=== PATIENT | female | born 1975 ===

== ENCOUNTER 2016-10-05 08:46 | Inpatient (IN) | payer OTHER ==
[~2016-10-05] VITALS: Ht 162.6 cm; Wt 68.0 kg
[2016-10-05] VITALS (10 sets, daily range): BP systolic 98–127; BP diastolic 54–78
[~2016-10-05 08:46] MED LIST: NKM
[2016-10-05] MEDS ORDERED: Thrombin 5000 units TOPIC ONE (09:55)
[2016-10-05] MEDS ORDERED: Bupivacaine w/Epi 0.5% 30ml Vial INJ ONE (09:56)
[2016-10-05] MEDS ORDERED: Bacitracin 50000 Units Vial ONE (09:56)
[2016-10-05] MEDS ORDERED: Gelfoam Absorbable 1gm powder pkt TOPIC ONE (09:56)
[2016-10-05] MEDS ORDERED: Thrombin 5000 units spray kit TOPIC ONE (09:56)
--- NOTE | 2016-10-05 10:40 | Anethesia Preoperative Eval ---
Anesthesia Pre-op PMH/ROS General Date of Evaluation: Oct 05, 2016 Time of Evaluation: 10:30 Anesthesiologist: Jet ASA Score: ASA 1 Mallampati Score Class I : Soft palate, uvula, fauces, pillars visible Class II: Soft palate, uvula, fauces visible Class III: Soft palate, base of uvula visible Class IV: Only hard plate visible Mallampati Classification: Class II Surgeon: Teresa Diagnosis: Cervical disc degeneration Surgical Procedure: ACDF Family History: no anesthesia problems Allergies: Coded Allergies: No Known Allergies (Unverified , 10/04/16) Medications: see eMAR Past Medical History Cardiovascular: Denies: CAD, HTN, [place], arrhythmia, other, valve dz Pulmonary: Denies: COPD, MARIO, asthma, other Gastrointestinal/Genitourinary: Denies: CRI, ESRD, GERD, other Neurologic/Psychiatric: Denies: CVA, TIA, dementia, depression/anxiety, other Endocrine: Denies: DM, hypothyroidism, other, steroids HEENT: Denies: [place] (L), [place] (R), cataract (L), cataract (R), glaucoma, other Hematology/Immune: Denies: DVT, anemia, bleeding disorder, other Musculoskeletal/Integumentary: Denies: DDD, DJD, OA, RA, edema, other PMH Narrative: Denies significant PMH PSxH Narrative: Lap Jo-Ann, T&A, IH, left wrist Anesthesia Pre-op Phys. Exam Physician Exam Last Vital Signs Date Time Temp Pulse Resp B/P Pulse Ox O2 Delivery O2 Flow Rate FiO2 10/05/16 09:25 98.4 66 18 127/78 100 Room Air Constitutional: NAD Neurologic: CN 2-12 intact Cardiovascular: RRR, no M/R/G Respiratory: CTA Gastrointestinal: S/NT/ND Airway Exam Mallampati Score: Class II MO: full ROM: full Teeth: intact Anesthesia Pre-op A/P Labs WNL Urine Test Test 10/05/16 09:00 Urine HCG, Qualitative Negative Studies Pre-op Studies: EKG - NSR Risk Assessment & Plan Assessment: Healthy female for ACDF Plan: GETA, SedLine Status Change Before Surgery: No Pre-Antibiotics Drug: Ancef Given Within 1 Hr of Incision: Yes Time Given: 12:35 HALEIGH WONG M.D. Oct 05, 2016 10:40
--- NOTE | 2016-10-05 10:41 | Immediate Post-Op Evaluation ---
Immediate Post-Op Evalulation Immediate Post-Op Evalulation Procedure: ACDF Date of Evaluation: Oct 05, 2016 Time of Evaluation: 15:20 IV Fluids: 1300 Urinary Output: 50 Blood Pressure Systolic: 109 Blood Pressure Diastolic: 58 Pulse Rate: 90 Respiratory Rate: 15 O2 Sat by Pulse Oximetry: 100 Temperature (Fahrenheit): 97.1 Pain Score (1-10): 0 Nausea: No Vomiting: No Complications No complication Patient Status: reacts, patent, extubated, none Hydration Status: adequate Drug: Ancef Given Within 1 Hr of Incision: Yes Time Given: 12:35 HALEIGH WONG M.D. Oct 05, 2016 10:40
[2016-10-05] MEDS ORDERED: Midazolam 2mg/2ml Inj ONE (12:00)
[2016-10-05] MEDS ORDERED: Zemuron 50mg/5ml Inj IV ONE (12:00)
[2016-10-05] MEDS ORDERED: fentaNYL 100 mcg/2 mL IV ONE (12:00)
[2016-10-05] MEDS ORDERED: Propofol 10mg/ml 100ml btl IV ONE (12:00)
[2016-10-05] MEDS ORDERED: Metoprolol 5mg/5ml Inj ONE (12:00)
[2016-10-05] MEDS ORDERED: LR 1000ml ONE (12:00)
--- NOTE | 2016-10-05 12:08 | Pre-Procedure Note/Attestation ---
Pre-Procedure Note/Attestation Complete Prior to Procedure Procedure Narrative: C567 ACDR vs ACDF VS hybrid Indications for Procedure Pre-Operative Diagnosis: c567 Discopathy Attestation I attest that I discussed the nature of the procedure; its benefits; risks and complications; and alternatives (and the risks and benefits of such alternatives ), prior to the procedure, with the patient (or the patient's legal associate sales representative). I attest that, if there was a reasonable possibility of needing a blood transfusion, the patient (or the patient's legal associate sales representative) was given the [facility] standardized written summary, pursuant to the [place]ong [place] Blood Safety Act ([place] Health and Safety Code # 1645, as amended). I attest that I re-evaluated the patient just prior to the surgery and that there has been no change in the patient's H&P, except as documented below: GALO SANTOS Oct 05, 2016 12:08
[2016-10-05] MEDS ORDERED: LR 1000ml 1,000 ML IVLG SCH (15:20)
[2016-10-05] MEDS ORDERED: Hydromorphone 0.5mg/0.5ml inj ONE (15:21)
[2016-10-05] MEDS ORDERED: Meperidine 25mg/0.5ml Inj (FOR RIGORS ONLY) IV PRN (15:30)
[2016-10-05] MEDS ORDERED: LR 1000ml 1,000 ML IV SCH (15:30)
[2016-10-05] MEDS ORDERED: Hydromorphone 0.5mg/0.5ml inj IVP PRN (15:30)
[2016-10-05] MEDS ORDERED: HYDROmorphone 1mg/ml Carpuject IVP PRN (15:30)
[2016-10-05] MEDS ORDERED: Naloxone 0.4mg/ml Inj IVP PRN (15:30)
[2016-10-05] MEDS ORDERED: LORazepam Inj 2mg/ml 1ml IV PRN (15:30)
[2016-10-05] MEDS ORDERED: Norco 5mg/325mg tab ORAL PRN (15:30)
[2016-10-05] MEDS ORDERED: Metoclopramide 10mg/2ml Inj IVP PRN (15:30)
[2016-10-05] MEDS ORDERED: Norco 7.5mg/325mg tab ORAL PRN ×2 (15:30)
--- NOTE | 2016-10-05 15:33 | Brief Operative Note ---
Immediate Post Operative Note Operative Note Pre-op Diagnosis: c567 Discopathy Procedure: ACDF c56,ACDR C67 Post-op Diagnosis: same as pre-op Findings: consistent w/pre-op dx studies Surgeon: yara Anesthesiologist: lucy Anesthesia: general Specimen: none Complications: none Condition: stable Estimated Blood Loss: minimal Drains: none Implant(s) used?: Yes - alphatec plate and peek cage (c56), Mobi-c disc (c67) GALO SANTOS Oct 05, 2016 15:33
--- NOTE | 2016-10-05 16:26 | Diagnostic Imaging Report ---
Indication: PAIN Technique: Digital intraoperative images Comparison: None Findings: Initial image demonstrates a surgical tool projected at the level of anterior C6-7 disc. Subsequent images demonstrate placement of a disc prosthesis at C6-7, and anterior fusion hardware and disc spacer at C5-6. Impression: Intraoperative imaging, as described
[2016-10-05] MEDS ORDERED: HYDROmorphone 1mg/ml Carpuject SUBQ PRN ×2 (17:00→21:00)
[2016-10-05] MEDS: D5 1/2NS 1,000 ML IV SCH (17:07)
[2016-10-05] MEDS: Docusate 100mg cap ORAL SCH (17:58)
[2016-10-05] MEDS: Pericolace tab ORAL SCH (17:58)
--- NOTE | 2016-10-05 20:00 | Operative Note - Dictated ---
DATE OF OPERATION: 10/05/2016 SURGEON: Ignacio Moore M.D. [employer] SUPERVISOR: None. ANESTHESIOLOGIST: Phong Chaudhary M.D. ANESTHESIA TYPE: General endotracheal anesthesia. PREOPERATIVE DIAGNOSES: 1. C5-C6 diskopathy. 2. C6-C7 disk rupture with radiculopathy. POSTOPERATIVE DIAGNOSES: 1. C5-C6 diskopathy. 2. C6-C7 disk rupture with radiculopathy. PROCEDURE: 1. Widened radical diskectomy C5-C6 and C6-C7 for decompression of spinal cord. 2. Placement of artificial disk replacement (Mobi-C) at the C6-C7. 3. Interbody fusion with placement of PEEK structural cage packed with bacterin allograft as well as local autograft bone. 4. Anterior instrumentation using Alphatec plate C5-C6. 5. Use of fluoroscopy. 6. Neurodiagnostic monitoring. ESTIMATED BLOOD LOSS: None. COMPLICATIONS: None. FINDINGS: Advanced diskopathy at C5-C6 with such a significant diskogenic collapse that was felt inappropriate to place an artificial disk in that location, however, the C6-C7 level was then ideal setting for a disk replacement. Therefore, a hybrid procedure was elected intraoperatively based on the inability and inappropriateness of placement of artificial disk at C5-C6. RISK NOTE: The patient was explained in detail the risks and benefits of surgery to include, but not be limited to, those of bleeding, infection, damage to nerves, vessels, tendons, anesthetic risk, allergic reaction, aspiration, and possibly . The patient understood and wished to proceed. OPERATIVE PROCEDURE IN DETAIL: The patient was taken to the operative suite. After general endotracheal anesthesia was obtained, the neck was strapped, arms were tucked, and bolster was placed under the neck. The neck was then prepped and draped in usual sterile fashion. Under fluoroscopic guidance, then we are able to identify the appropriate level for the C6 level. The transverse incision was made in one of the skin creases. This was performed after the skin was infiltrated with Marcaine with epinephrine. Once the skin was incised, the platysma was identified and was split transversely. Dissection was then carried out to the interval deep to the platysma along the medial to the sternocleidomastoid. Blunt dissection was carried out to the level of the prevertebral fascia medial to the carotid. A self-retaining retractors were put into place. After needle was placed at C6-C7 confirming our position. The C5-C6 level was first addressed. [place] posts were placed under fluoroscopic guidance at C6 and ultimately at C5 as well. The disk was incised. Please note that the disk was very collapsed and was markedly fibrosed. Once this was identified, it was elected that this would not be an appropriate medium for placement of artificial disk and it was elected to perform a fusion at this level. Aggressive diskectomy was performed all the way to the posterior osteophytes. Posterior longitudinal ligament was also removed. This was performed using a high-speed drill to remove posterior osteophytes as well as a curved curette to remove the posterior annulus and PLL. The Kerrison punch 2 millimeter was used to remove the PLL decompressing the spinal cord. A small PEEK cage was chosen, which was only 13 mm anterior to posterior dimension due to the patient's narrow vertebral depth. It was centrally packed with Bacterin bone allograft as well as local autograft bone. Once this was inserted, it was verified fluoroscopically to be in good position. [place] posts was then removed from C5 and under fluoroscopic guidance was placed into C7. The retractors were positioned in a way that the C6-C7 level could be easily addressed. In a similar fashion widened radical diskectomy was performed at C6-C7 using a scalpel, curette, pituitaries, and Kerrison Rongeurs. Dissection was carried out all the way to the posterior anulus. Posterior annulus was partially resected and then extruded central disk fragment was identified and this was removed in a piecemeal fashion. There was also notable scarring along the left lateral recess at C6-C7, however, the extruded fragment was central and right-sided. Copious irrigation was performed. The spinal cord was fully decompressed and decision was made to place a Mobi-C artificial disk. The trial was inserted in the center and noted to be perpendicular to the axis of the spine and noted to be in a good overall position. At this point, a small 5 millimeter prosthesis was chosen and it was placed into the center of the vertebral interspace at C6-C7 under fluoroscopic guidance and noted to be perpendicular to the lateral and AP axis. At this point, once the implant was inserted, it was noted that the upper end plates still needed to be advanced separate from the lower and this was tapped into place under fluoroscopic guidance. Copious irrigation was then performed. Once satisfied with the placement of the artificial disk, which was verified in both AP and lateral projections. Attention was then turned to the C5-C6 level and an appropriate 10 millimeter plate was chosen. All four screw holes were serially drilled and 14 mm screws were applied into C5 and 12 mm screws into C6. Copious irrigation was performed. Additional bone graft was placed at the periphery of the cage at C5-C6. Once meticulous hemostasis was assured, the platysma was repaired using 3-0 Vicryl, subcutaneous closure using 4-0 Vicryl and Dermabond was applied. The patient was subsequently awakened, extubated, and transferred to recovery room in stable condition. Ignacio Moore M.D. DR: LONG JOB#: [id number] CC:
[2016-10-05] MEDS: ceFAZolin sod 1 GM in D5W 55 ML IV SCH ×2 (20:16→21:25)
[2016-10-05] MEDS ORDERED: Cyclobenzaprine 10mg Tab ORAL PRN (21:00)
[2016-10-05] MEDS ORDERED: Chloraseptic Spray 20mL Bottle ORAL PRN (21:00)
[2016-10-05] MEDS ORDERED: HydrOXYzine 25mg tab ORAL PRN (21:00)
[2016-10-06 00:09] VITALS: BP 101/64
[2016-10-06] MEDS: D5 1/2NS 1,000 ML IV SCH ×2 (03:15→13:15)
[2016-10-06 04:00] VITALS: BP 111/62
[2016-10-06] MEDS: Norco 10mg/325mg tab ORAL PRN ×4 (04:02→20:25)
[2016-10-06] MEDS: ceFAZolin sod 1 GM in D5W 55 ML IV SCH (06:19)
--- NOTE | 2016-10-06 06:30 | 48 Hour Post Anesthesia Eval ---
Post Anesthesia Evaluation Procedure: ACDF Date of Evaluation: Oct 06, 2016 Time of Evaluation: 06:06 Blood Pressure Systolic: 111 0: 52 Pulse Rate: 78 Respiratory Rate: 18 Temperature (Fahrenheit): 97.3 O2 Sat by Pulse Oximetry: 98 Airway: patent Nausea: No Vomiting: No Pain Intensity: 2 Hydration Status: adequate Cardiopulmonary Status: Stable Mental Status/LOC: patient returned to baseline Follow-up Care/Observations: 0 Post-Anesthesia Complications: 0 Follow-up care needed: N/A Xavier Ovalle MD Oct 06, 2016 06:30
--- NOTE | 2016-10-06 07:45 | Consultation ---
DATE OF CONSULTATION: 10/05/2016 CONSULTING PHYSICIAN: Florentino Boone M.D. REFERRING PHYSICIAN: Ignacio Moore M.D. REASON FOR CONSULTATION: Acute pain consult. Thank you kindly for consulting me to evaluate and render an opinion as to how to proceed in the management of the patient's acute postoperative cervical spine pain after cervical spine instrumentation surgery today. 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 She required cervical spine instrumentation surgery today and complained of significant postoperative discomfort. You consulted me for acute pain consultation. I saw the patient at the bedside with her . I discussed the case with yourself, Dr. Moore along with the nurse RN, Juventino. I performed a detailed history and physical examination. I spent over 75 minutes in consultation with an additional 30 minutes in the medical record review. PAST MEDICAL HISTORY: 1. Acute postoperative cervical spine pain status post cervical spine instrumentation surgery by Dr. Ignacio Moore on 10/05/2016. 2. Work-related injury. PAST SURGICAL HISTORY: 1. Tonsillectomy. 2. Laparoscopic cholecystectomy. 3. Left wrist surgery. 4. Left inguinal hernia repair. MEDICATIONS: P.r.n. pain medicines. ALLERGIES: No known drug allergies. SOCIAL HISTORY: The patient is accompanied at the bedside by her , her daughter, and her mother. Alcohol usage is social. The patient denies tobacco or marijuana usage. FAMILY HISTORY: Chronic urinary tract infections. REVIEW OF SYSTEMS: Per attending physician. PHYSICAL EXAMINATION: VITAL SIGNS: Age 41, height 5 feet 4 inches, and weight 160 pounds. Body mass index is 28. Afebrile, pulse 74, respirations 18, blood pressure 98/54, and oxygen saturation 100% on room air. HEENT: Normocephalic and atraumatic. The patient appears non-toxic without any breathing difficulties. Extraocular muscles intact. Pupils are equal, round, and reactive to light and accommodate. NECK: Her neck incision appears clean and dry with a dry dressing. She is swallowing and phonating within normal limits and postoperative neck swelling appears within normal limits. A rigid [place] cervical spine collar is at the bedside. CHEST: Clear to auscultation. HEART: Regular rate and rhythm ABDOMEN: Soft. BREASTS: Deferred. GENITOURINARY: Deferred. NEUROLOGIC: Grossly 5/5 dorsiflexion and 5/5 plantar flexion in bilateral lower extremities. DIAGNOSTIC TESTING: Preoperative 12-lead EKG shows normal sinus rhythm and ventricular rate . No evidence for acute cardiac ischemia. Preoperative chest x-ray shows no acute cardiopulmonary disease on 10/01/2016. LABORATORY DATA: Laboratory studies from 10/01/2016 shows glucose 132. BUN normal, creatinine 0.6, sodium 139, potassium 3.9, chloride 105, bicarbonate 24, and calcium 8.0. Total protein normal. Albumin 4.0. Total bilirubin 0.6. Alkaline phosphatase 60, AST 14, and ALT 14. PT 24 and INR 1.0. White count 6, hematocrit 42, and platelets 221,000. IMPRESSION: 1. Acute postoperative cervical spine pain status post cervical spine instrumentation surgery by Dr. Ignacio Moore on 10/05/2016. 2. Work-related injury. TREATMENT AND RECOMMENDATIONS: To help with this patient's pain control, I have devised the following analgesic plan. I have asked the nursing team to place a bottle of Chloraseptic spray at the bedside for sore throat complaints. In case of any headache symptoms, I have ordered Fioricet one tablet orally every 8 hours p.r.n. The patient has used hydrocodone after her previous surgeries and I have made available Industry 10/325 mg one tablet orally every 3 hours as needed for mild pain with the breakthrough dose of Dilaudid 1 mg subcutaneously every 3 hours as needed for severe breakthrough pain. The patient is complaining of itching and I have ordered Benadryl 20 mg orally every 6 hours along with a second-line agent of Atarax ____200 mg q.6 p.r.n. I have placed the patient on Protonix 40 mg nightly for GI ulcer prophylaxis along with a p.r.n. dose of Mylanta 30 mL q.6 hours p.r.n. for any GERD symptom exacerbation. In case of nausea, she does have Zofran available as a rescue antiemetic with a second line agent an intramuscular Phenergan 12.5 mg p.r.n. The patient does admit to significant opioid-induced constipation after a previous surgery. I will start her on Metamucil b.i.d. to complement the Colace 100 mg b.i.d. I did recommend aggressive laxative usage once she returns home. I did leave the a prescription for Industry and Colace and Metamucil for outpatient usage. A comprehensive review of the medical record was performed. Records reviewed include multiple records from today's date of surgery at [facility] on 10/05/2016 including consent for surgical treatment, consent for anesthesia, consent for blood products, medication administration record, medication reconciliation order form, PACU orders, PACU record, postoperative spine surgery orders, and postoperative surgery report by Dr. Moore, intraoperative anesthesia record, pre and postanesthesia evaluation record, and surgical invasive implant log, guidelines for prophylactic antibiotics, guidelines for DVT prophylaxis, 24-hour medical/surgical flow sheet, and initial nursing assessment. Further record review included preoperative history and physical by Dr. Jack Neves along with diagnostic testing including laboratory studies, 12-lead EKG, and chest x-ray. Florentino Boone M.D. DR: KOSTA JOB#: [id number] CC: ZACK
[2016-10-06 08:00] VITALS: BP 120/76
[2016-10-06] MEDS: Metamucil Pkt ORAL SCH ×2 (08:22→17:44)
[2016-10-06] MEDS: Pericolace tab ORAL SCH ×2 (08:22→17:44)
[2016-10-06] MEDS: Docusate 100mg cap ORAL SCH ×2 (08:22→17:44)
[2016-10-06] MEDS ORDERED: Docusate 100mg cap ORAL SCH (09:00)
[2016-10-06] MEDS ORDERED: Docusate 100mg/10ml Liq NG SCH (09:00)
[2016-10-06 12:00] VITALS: BP 103/55
[2016-10-06] MEDS ORDERED: NORCO 10-325 T1 EACH ORAL ×2 (13:54→13:55)
[2016-10-06] MEDS ORDERED: COLACE100 MG ORAL (13:58)
[2016-10-06] MEDS ORDERED: METAMUCIL PACK1 EAC1 ORAL (14:00)
[2016-10-06] MEDS ORDERED: ceFAZolin sod 1 GM in D5W 55 ML IV SCH (14:00)
[2016-10-06 16:00] VITALS: BP 111/64
--- NOTE | 2016-10-06 20:54 | Orthopedic Spine Progress Note ---
Ortho Spine - Progress Note Subjective Symptoms: improved Objective Vital Signs: Last 24 Hour Vital Signs Date Time Temp Pulse Resp B/P Pulse Ox O2 Delivery O2 Flow Rate FiO2 10/06/16 17:41 97.7 10/06/16 16:00 97.9 79 18 111/64 99 Room Air 10/06/16 12:00 97.7 80 18 103/55 Room Air 10/06/16 08:00 97.0 78 18 120/76 99 Room Air 10/06/16 06:30 78 18 98 10/06/16 04:00 97.3 78 18 111/62 98 Room Air 10/06/16 00:09 97.2 74 19 101/64 97 Room Air I&O: Intake and Output 10/05/16 10/06/16 19:00 07:00 Intake Total 1900 ml 1740 ml Output Total 350 ml 1070 ml Balance 1550 ml 670 ml Intake Oral 640 ml IV Total 1900 ml 1100 ml Output Urine Total 300 ml 700 ml Emesis 370 ml Estimated Blood Loss 50 ml # Voids 1 2 Drains: none Neuro Status: normal Assessment Procedure Performed: ACDF c56,ACDR C67 Plan Plan: PT, discharge plan, discharge to home GALO SANTOS Oct 06, 2016 20:54
--- NOTE | 2016-10-06 21:15 | Progress Note ---
DATE: 10/06/2016 ACUTE PAIN MANAGEMENT PHYSICIAN PROGRESS NOTE MEDICATIONS: Medication administration record reviewed. Medications include Tylenol, Fioricet, Mylanta, Flexeril, Benadryl, Alloway, Atarax, Narcan, Zofran, Protonix, Chloraseptic, Phenergan, Metamucil, Colace, and Restoril. OBJECTIVE: VITAL SIGNS: Afebrile. Pulse 80, respirations 18, and blood pressure 103/55. The patient's oxygen saturation 99% on room air. LABORATORY STUDIES: No interval laboratory studies. I saw the patient at the bedside with her . I discussed the case with the surgeon, Dr. Moore and the floor nurse, LORENA Crowell. The patient had several episodes of emesis during the night club manager, but these symptoms have improved significantly. She has tolerated advancing diet for lunch. Her pain is well controlled and I did leave the already a prescription for outpatient pain medicine. The patient is wearing her [place] rigid neck collar, which fits well. She is swallowing, breathing, and phonating within normal limits. The patient is grossly neurologically intact and ambulating around the nursing unit and also voiding urine through the restroom without any difficulties. I agree with Dr. Moore for discharge trial home at this time. Florentino Boone M.D. DR: AGAPITO JOB#: [id number] CC:
[2016-10-06 21:30] VITALS: BP 96/61
[2016-10-06] MEDS ORDERED: D5 1/2NS 1000ml IV ONE (21:34)
--- NOTE | 2016-10-07 20:09 | Discharge Summary ---
Discharge Summary Hospital Course Date of Admission Oct 05, 2016 at 08:46 Date of Discharge Oct 06, 2016 at 21:35 Admitting Diagnosis HPI Nika Friedman is a 41 year old female who was admitted on Oct 05, 2016 at 08: 46 for Other Cervical Disc Degeneration Hospital Course [id number] Discharge Discharge Disposition Patient was discharged to Home (01) Discharge Diagnoses: Teresa Vera NP Oct 07, 2016 20:09
--- NOTE | 2016-10-08 12:45 | Discharge Summary 2 SIG ---
DATE OF ADMISSION: 10/05/2016 DATE OF DISCHARGE: 10/06/2016 MATTRESS FILLER: Florentino Boone M.D. BRIEF HOSPITAL COURSE: The patient is a 41-year-old female, who injured her neck after a work-related injury and had advanced discopathy at C5-C6 with significant discogenic collapse. She was admitted on 10/05/2016 and underwent wide and radical diskectomy on C5-C6 and C6-C7 for decompression of spinal cord with placement of artificial disc at the C6-C7. Postoperatively, she was followed by Dr. Boone for pain management and was given DVT prophylaxis and physical therapy. The following day postoperatively, the patient's symptoms improved. She was afebrile. She had episodes of emesis during the night, however, symptoms resolved. Diet was advanced. Pain was well controlled and was wearing [place] rigid neck collar, which fits well. She is swallowing, breathing, and phonating within normal limits, grossly neurologically intact, ambulating around the nursing unit, and voiding without any difficulties. The patient was then discharged home, advised to follow up as outpatient. FINAL DIAGNOSIS: C5-C6 discopathy and C6-C7 disc rupture with radiculopathy, status post wide and radical diskectomy on C5-C6 and C6-C7 with placement of artificial disc at C6-C7. Ignacio Moore M.D. I have been assigned to dictate discharge summary on this account and I was not involved in the patient's management. Teresa Vera N.P. DR: Ozzy JOB#: [id number] CC: ZACK
== END 2016-10-06 21:35 | disposition home or self-care (01) | DRG 473 ==
LOC: SDSOVERFLO 08:46 → EDSEX 12:00 → EDBD 12:00 → 3E 16:12
DX: M50.123 Cervical disc disorder at C6-C7 level with radiculopathy (principal); M50.822 Other cervical disc disorders at C5-C6 level
CPT/HCPCS: 36415; 72040; 76001; 81025; 86850; 86900; 86901; 87081; C9399; J2180; J2250; J2405